=== PATIENT | male | born 1985 | race Caucasian/White ===

== ENCOUNTER 2017-04-28 12:12 | Emergency (ER) | payer BC, MEDICAID ==
[2017-04-28] MEDS ORDERED: Metoclopramide 10 MG/2 ML SDV IVPUSH ONE (12:40)
[2017-04-28] MEDS ORDERED: HYDROmorphone 0.5 MG/0.5 ML Syringe IVPUSH ONE (12:40)
--- NOTE | 2017-04-28 12:42 | EDM.PDOC ---
ED HPI GENERAL MEDICAL PROBLEM - General Chief Complaint: Flank Pain Stated Complaint: ABDOMINAL AND BACK PAIN Time Seen by Provider: 04/28/17 12:39 Source of Information: Reports: Patient History Limitations: Reports: No Limitations - History of Present Illness INITIAL COMMENTS - FREE TEXT/NARRATIVE: 32-year-old male presents the ED with acute onset of right flank pain with slight radiation to the right upper abdomen for a very transient period of time. Patient has chronic mid and low back pain and thought it was just aggravation of his current symptoms. However the pain intensified over the last hour and a half. Initial pain seemed to come on about 10:00. Pain intensified to the point that it may tonight of nausea and vomiting 1 associated feeling of need to void and to defecate. No noted changes in the color of his urine. He has no history of kidney stones. Mother does have a history of renal lithiasis. 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 [No Known Home Meds] 04/28/17 [History] Past Medical History Musculoskeletal History: Reports: Back Pain, Chronic - Past Surgical History Musculoskeletal Surgical History: Reports: Arthroscopic Knee, ORIF Social & Family History - Tobacco Use Smoking Status *Q: Never Smoker - Caffeine Use Caffeine Use: Reports: Coffee - Recreational Drug Use Recreational Drug Use: No - Living Situation & Occupation Living situation: Reports: Occupation: Employed ED ROS GENERAL - Review of Systems Review Of Systems: See Below Constitutional: Denies: Fever, Chills, Malaise, Weakness, Fatigue, Decreased Appetite, Weight Loss HEENT: Reports: No Symptoms Respiratory: Reports: No Symptoms Cardiovascular: Reports: No Symptoms Endocrine: Reports: No Symptoms GI/Abdominal: Reports: Abdominal Pain (Mild right lula-abdominal pain associate with development of right flank pain. Currently mostly pain in the right flank.) , Nausea, Vomiting (1.). Denies: Constipation, Diarrhea, Decreased Appetite, Difficulty Swallowing, Flatus, Hematemesis, Hematochezia, Melena : Reports: No Symptoms, Flank Pain (Acute right flank pain with associated feeling of need to void.) Musculoskeletal: Reports: Back Pain Skin: Reports: No Symptoms (Running low back pain problems) Neurological: Reports: No Symptoms Psychiatric: Reports: No Symptoms ED EXAM, RENAL/ - Physical Exam Exam: See Below Exam Limited By: No Limitations General Appearance: Alert, WD/WN, Moderate Distress (No position is comfortable. ) Respiratory/Chest: No Respiratory Distress, Lungs Clear, Normal Breath Sounds, No Accessory Muscle Use Cardiovascular: Normal Peripheral Pulses, Regular Rate, Rhythm, No Edema, No Gallop, No Murmur, No Rub GI/Abdominal: No Organomegaly, No Distention, No Abnormal Bruit, No Mass, Pelvis Stable, Abnormal Bowel Sounds (Hypoactive bowel sounds), Other (The abdomen is firm to palpation) Back Exam: CVA Tenderness (R), Decreased Range of Motion, Vertebral Tenderness. No: CVA Tenderness (L) (Mild), Muscle Spasm Extremities: Normal Inspection, Normal Range of Motion, Non-Tender, No Pedal Edema, Normal Capillary Refill Neurological: Alert, Oriented, CN II-XII Intact, Normal Cognition, Normal Gait, Normal Reflexes Psychiatric: Normal Affect, Normal Mood Skin Exam: Warm, Dry, Intact, Normal Color, No Rash Course - Vital Signs Last Recorded V/S: Last Vital Signs Temp 37.0 C 04/28/17 12:25 Pulse 93 04/28/17 12:25 Resp 16 04/28/17 12:25 BP 134/106 H 04/28/17 12:25 Pulse Ox 100 04/28/17 12:25 - Orders/Labs/Meds Meds: Medications Discontinued Medications Generic Name Dose Route Start Last Admin Trade Name Freq PRN Reason Stop Dose Admin Hydromorphone HCl 0.5 mg 04/28/17 12:40 04/28/17 12:50 Dilaudid IVPUSH 04/28/17 12:41 0.5 mg ONETIME ONE Administration Sodium Chloride 1,000 mls @ 150 mls/hr 04/28/17 12:45 04/28/17 12:46 Normal Saline IV 150 mls/hr ASDIRECTED JOSUE Administration Ketorolac Tromethamine 30 mg 04/28/17 12:45 04/28/17 12:52 Toradol IVPUSH 30 mg ONETIME JOSUE Administration Metoclopramide HCl 10 mg 04/28/17 12:40 04/28/17 12:47 Reglan IVPUSH 04/28/17 12:41 10 mg ONETIME ONE Administration - Radiology Interpretation Free Text/Narrative:: 32-year-old male presents the ED with acute onset of severe right flank pain radiating slightly into the right upper abdomen. Down to the groin or testicle. Changes in the color vision. Associated nausea and vomiting 1 and feeling of need to void and defecate. Pain disease Doppler little bit now compared to what it was an hour ago. He has no history himself of kidney stones but his mother has a history of renal lithiasis. Patient has a history of chronic low back pain. Benign abdominal examination mild right costovertebral angle tenderness. Plan CT the abdomen and pelvis to be performed per renal protocol. Given IV normal saline at 150 mils per hour. Given Toradol 30 mg IV with Dilaudid 0.5 mg IV and Reglan 10 mg IV for nausea and pain relief. Urinalysis to be collected when one becomes available - Re-Assessments/Exams Free Text/Narrative Re-Assessment/Exam: 04/28/17 13:18 CT scan done of the abdomen and pelvis per renal protocol reveals no stones within the renal parenchyma. All stones pancreas is ill- defined liver appears normal both kidneys appear normal although the right shows some mild hydronephrosis. The right ureter however was not significantly dilated as compared to the left. There is a 2 .5mm stone just in the fundus of the urinary bladder indicating he has passed a stone. He is pain-free at this time. He therefore will be discharged to home. He will have to rest for a few hours due to the fact did receive low-dose Dilaudid and he has a ride. Advised to drink plenty of fluids and water over the summer months. Minimize oxalates which come primarily from soda pop etc. Calcium added diet. Departure - Departure Time of Disposition: 13:19 Disposition: Home, Self-Care 01 Condition: Fair Clinical Impression: Renal colic on right side - Discharge Information Instructions: Renal Colic, [id number] Referrals: PCP,None [Primary Care Provider] - Forms: ED Department Discharge, Return to Work/School Form Additional Instructions: Evaluation the emergency room today in regards to acute onset of right flank pain radiating into slightly into the right hemiabdomen down to the groin. Evaluation was compatible with right renal colic or stone within the right ureteric system. ET scan of the abdomen and pelvis reveals that the 2 mm stone has passed into the urinary bladder facet within the next few voids today. No other stones were identified in the renal tissue to get you in the near future. Gallstones are made out a calcium phosphate are calcium oxalate crystals. Leg crystals come from Nidia he vegetables and shoulder pop. Be aware of this also no calcium added diet advise such as a calcium supplement. May drink milk and yogurt and ice cream etc. per normal. Tums and Rolaids contain high concentrations of calcium and if you need something for heartburn uses Zantac or Pepcid instead. No follow-up arrangements necessary unless you have further problems. Suggest off work the remainder today.
[2017-04-28] MEDS ORDERED: Ketorolac 30 MG/ML SDV IVPUSH SCH (12:45)
[2017-04-28] MEDS ORDERED: Sodium Chloride 0.9% 1,000 ML IV SCH (12:45)
[2017-04-28 12:53] VITALS: BP 134/106
--- NOTE | 2017-04-28 14:21 | CT ---
CT abdomen and pelvis Technique: Multiple axial sections were obtained from above the kidneys inferiorly through the pubic symphysis. Intravenous and oral contrast not utilized. Study has been performed as a ureteral stone protocol. Findings: Kidneys show no abnormal calcifications. No hydronephrosis is seen. No abnormal calcifications are seen along the course of the ureters. Visualized posterior lungs are clear. Liver shows diffuse fatty infiltration. Spleen appears within normal limits. Adrenal glands show no nodule. Pancreas is within normal limits. Aorta shows no aneurysmal dilatation. No retroperitoneal adenopathy is seen. Calcification within the proximal appendix is seen compatible with small appendicolith. This appendicolith measures approximately 4 mm. Appendix is seen which is normal in size and shows no surrounding inflammatory change. No pelvic mass or adenopathy is seen. There is a small calcification being seen within the dependent portions of the bladder measuring about 3 mm in size which is compatible with a ureteral stone that has passed. Bone window settings were reviewed which appears within normal limits for the patient's age. Impression: 1. No renal calculi, ureteral dilatation or ureteral stone is seen. 2. 3 mm calcification within the bladder most likely representing ureteral stone that has passed. Please correlate that patient's symptoms have improved. 3. Fatty infiltration seen within the liver. 4. Small appendicolith within the proximal appendix. Appendix is otherwise unremarkable. Diagnostic code #3
== END 2017-04-28 13:31 | disposition home or self-care (01) ==
LOC: JD.ED 12:12
DX: N23 Unspecified renal colic (principal)
CPT/HCPCS: 74176; 96361; 96374; 96375; 99284; J1170; J1885; J2765; J7040